=== PATIENT | female | born 1990 | race Caucasian/White ===

== ENCOUNTER 2018-05-09 10:08 | Emergency (ER) | payer OTHER ==
[2018-05-09] MEDS: HYDROCODONE/APAP (5/325) TAB PO ×2 (11:39→13:47)
[2018-05-09] MEDS: DIPHTH/TET/ACEL PERTUSS (ADULT) 0.5 ML VIAL IM* (11:40)
[2018-05-09] MEDS: BACITRACIN 0.9 GM OINT TOP (11:51)
== END 2018-05-09 13:56 | disposition home or self-care (01) ==
LOC: FTE 10:08
DX: S40.812A Abrasion of left upper arm, initial encounter (principal); S06.0X0A Concussion without loss of consciousness, initial encounter; S20.219A Contusion of unspecified front wall of thorax, initial encounter; M62.838 Other muscle spasm; V48.5XXA Car driver injured in noncollision transport accident in traffic accident, initial encounter; Z23 Encounter for immunization
CPT/HCPCS: 70450; 71046; 73030; 73060; 81025; 90471; 90715; 99284-25